=== PATIENT | female | born 1980 | race African-American/Black ===

== ENCOUNTER 2017-05-21 10:26 | Emergency (ER) | payer MEDICAID, OTHER, SELFPAY ==
[2017-05-21 10:58] LABS: #Basophils 0.1 thou/uL (0.0-0.2); #Eosinphils 1.3 thou/uL (0.0-0.7); #Lymphocytes 2.9 thou/uL (1.20-3.40); #Monocytes 0.9 thou/uL (0.11-0.59); #Neutrophils 7.2 thou/uL (1.40-6.50); %Basophils 1.1 % (0.0-1.0); %Eosinophils 10.3 % (0.0-10.0); %Lymphocytes 23.3 % (21.0-51.0); %Monocytes 6.9 % (0.0-10.0); %Neutrophils 58.3 % (42.0-75.0); Hemoglobin 8.6 g/dL (12.0-16.0); Mean Corpuscular HGB CONC 29.7 g/dL (32.0-36.0); Mean Corpuscular Hemoglobin 19.7 pg (27.0-31.0); Mean Corpuscular Volume 66.4 fl (81.0-99.0); Mean Platelet Volume 5.7 fL (7.4-10.4); Platelet Count 207 thou/uL (130-400); Red Blood Cell (RBC) Count 4.34 mill/uL (4.20-5.40); White Blood Cell (WBC) Count 12.4 thou/uL (4.8-10.8)
[2017-05-21 11:08] LABS: BHCG - Serum Negative (NEGATIVE); Pregs Control Background? CLEAR/WHITE (CLR/WHITE); Pregs Control Bar Appear? YES (CONTROL BAR)
[2017-05-21 11:16] LABS: ALT (SGPT) 11 U/L (8-55); AST (SGOT) 17 U/L (5-34); Albumin 3.9 g/dL (3.5-5.0); Alkaline Phosphatase 88 U/L (40-150); Anion Gap 11 mmol/L (10-20); BUN (Urea Nitrogen) 4 mg/dL (7.0-18.7); Bilirubin, Total 0.3 mg/dL (0.2-1.2); Calc. Creatinine Clearance 0 mL/min (70-130); Calcium 8.8 mg/dL (7.8-10.44); Carbon Dioxide 23 mmol/L (22-29); Chloride 105 mmol/L (98-107); Estimated GFR-MDRD Greater than 90; Globulin 3.3 g/dL (2.4-3.5); Glucose 90 mg/dL (70-105); Potassium 3.8 mmol/L (3.5-5.1); Protein, Total 7.2 g/dL (6.0-8.3); Sodium 135 mmol/L (136-145)
[2017-05-21 11:27] LABS: Anisocytosis MODERATE=16-30 cells (100X) (0-5/hpf); Hypochromia MODERATE=16-30 cells (100X) (0-5/hpf); MDiff Complete? YES; Microcytosis SLIGHT = 6-15 cells (100X) (0-5/hpf); Ovalocytes SLIGHT = 2-5 cells (100X) (0-1/hpf); PLT Morphology Comment Appears Adequate; Polychromasia SLIGHT = 2-3 cells (100X) (0-2/hpf); Reflex for Review?? NO; Target Cells SLIGHT = 2-5 cells (100X) (0-1/hpf)
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
[2017-05-21 12:10] LABS: Bilirubin Negative (Negative); Blood, Urine Negative (Negative); Clarity CLEAR (Clear); Glucose, Urine (Dipstick) Negative (Negative); Leukocyte Moderate (Negative); Nitrite Negative (Negative); Protein, Urine (Dipstick) Negative (Neg-Trace); Urobilinogen 0.2 mg/dL (0.2-1.0)
[2017-05-21 12:12] LABS: Bacteria/HPF Rare-Few HPF (None Seen); Hyaline Casts/LPF 0-3 HYALINE CAST LPF (0-3 Hyaline); RBC/HPF 0-3 HPF (0-3); Squamous Epithelial 0-3 HPF (0-3)
[2017-05-21 12:13] LABS: Specific Gravity, Urine 1.001 (1.002-1.036)
[2017-05-21] MEDS ORDERED: Naproxen 500 MG TAB ONE (13:07)
--- NOTE | 2017-05-29 18:03 | EKG ---
Test Reason : Blood Pressure : / mmHG Vent. Rate : 060 BPM Atrial Rate : 060 BPM P-R Int : 146 ms QRS Dur : 086 ms QT Int : 428 ms P-R-T Axes : 054 043 013 degrees QTc Int : 428 ms Normal sinus rhythm Minimal voltage criteria for LVH, may be normal variant Borderline ECG Confirmed by SIDNEY CARPIO, VANDANA ([id number]), social media editor THAI ROSAS ([id number]) on 05/29/2017 6:03:14 PM Referred By: Confirmed By:VANDANA LITTLE MD
== END 2017-05-21 13:00 | disposition home or self-care (01) ==
LOC: ERS 10:26
DX: M25.561 Pain in right knee (principal); J45.909 Unspecified asthma, uncomplicated; G43.909 Migraine, unspecified, not intractable, without status migrainosus; Z79.899 Other long term (current) drug therapy; Z87.891 Personal history of nicotine dependence; V89.2XXA Person injured in unspecified motor-vehicle accident, traffic, initial encounter
CPT/HCPCS: 71045; 72125; 72170; 80053; 81003; 81015; 84703; 85025; 93005

== ENCOUNTER 2017-12-25 05:16 | Emergency (ER) | payer SELFPAY ==
[2017-12-25] MEDS ORDERED: Ketorolac Tromethamine 30 MG/ML VIAL ONE (05:39)
== END 2017-12-25 05:55 | disposition home or self-care (01) ==
LOC: ERS 05:16
DX: M54.5 Low back pain (principal); Z87.891 Personal history of nicotine dependence
CPT/HCPCS: 96372; J1885

== ENCOUNTER 2018-07-23 12:41 | Emergency (ER) | payer SELFPAY ==
[~2018-07-23 12:41] MED LIST: ISOVUE-370 76%-LOCM 1 ML ONE
[2018-07-23] MEDS ORDERED: Morphine 4 MG/ML VIAL ONE (13:23)
[2018-07-23 13:51] LABS: #Basophils 0.1 thou/uL (0.0-0.2); #Lymphocytes 0.9 thou/uL (1.20-3.40); #Monocytes 0.6 thou/uL (0.11-0.59); #Neutrophils 7.6 thou/uL (1.40-6.50); %Basophils 0.7 % (0.0-1.0); %Eosinophils 0.2 % (0.0-10.0); %Monocytes 6.1 % (0.0-10.0); Hemoglobin 9.4 g/dL (12.0-16.0); Mean Corpuscular HGB CONC 30.6 g/dL (32.0-36.0); Mean Corpuscular Hemoglobin 22.3 pg (27.0-31.0); Mean Corpuscular Volume 72.9 fL (78.0-98.0); Mean Platelet Volume 10.3 fL (7.4-10.4); Platelet Count 197 thou/uL (130-400); RBC Distribution Width 20.1 % (11.5-14.5); Red Blood Cell (RBC) Count 4.21 mill/uL (4.20-5.40); White Blood Cell (WBC) Count 9.2 thou/uL (4.8-10.8)
[2018-07-23 14:03] LABS: ALT (SGPT) 14 U/L (8-55); AST (SGOT) 15 U/L (5-34); Albumin 3.4 g/dL (3.5-5.0); Alkaline Phosphatase 74 U/L (40-150); Anion Gap 13 mmol/L (10-20); BUN (Urea Nitrogen) 10 mg/dL (7.0-18.7); Bilirubin, Total 0.3 mg/dL (0.2-1.2); Calc. Creatinine Clearance 0 mL/min (70-130); Calcium 9.1 mg/dL (7.8-10.44); Carbon Dioxide 22 mmol/L (22-29); Chloride 108 mmol/L (98-107); Estimated GFR-MDRD Greater than 90; Globulin 2.3 g/dL (2.4-3.5); Glucose 114 mg/dL (70-105); Lipase 9 U/L (8-78); Potassium 3.4 mmol/L (3.5-5.1); Protein, Total 5.7 g/dL (6.0-8.3); Sodium 140 mmol/L (136-145)
[2018-07-23 14:14] LABS: Anisocytosis MODERATE=16-30 cells (100X) (0-5/hpf); Hypochromia SLIGHT = 6-15 cells (100X) (0-5/hpf); MDiff Complete? YES; Microcytosis SLIGHT = 6-15 cells (100X) (0-5/hpf); Ovalocytes SLIGHT = 2-5 cells (100X) (0-1/hpf); Platelet Morphology Comment Appears Adequate; Polychromasia SLIGHT = 2-3 cells (100X) (0-2/hpf); Target Cells SLIGHT = 2-5 cells (100X) (0-1/hpf)
[2018-07-23 15:11] LABS: Bilirubin Negative (Negative); Blood, Urine Negative (Negative); Clarity CLOUDY (Clear); Glucose, Urine (Dipstick) Negative (Negative); Leukocyte Trace (Negative); Nitrite Negative (Negative); Protein, Urine (Dipstick) 100 mg/dL (Neg-Trace); Specific Gravity, Urine 1.026 (1.002-1.036); pH, Urine 8.5 (5.0-9.0)
[2018-07-23 15:12] LABS: Bacteria/HPF Rare-Few HPF (None Seen); Hyaline Casts/LPF 0-3 HYALINE CAST LPF (0-3 Hyaline); Pathc Cast-AUWi Flag 0.27 (0-2.49); Pregnancy Test - Urine (BHCG) Negative (Negative); Pregu Control Background? CLEAR/WHITE (CLR/WHITE); Pregu Control Bar Appear? YES (CONTROL BAR); Specific Gravity 1.026 (1.002-1.036)
[2018-07-23 15:24] LABS: Transitional Epithelial 0-3 HPF (0-3)
--- NOTE | 2018-07-23 16:01 | CT ---
CT ABDOMEN AND PELVIS WITH IV CONTRAST 07/23/2018 CLINICAL INFORMATION: Nausea and vomiting. COMPARISON: 08/12/2014. Technique: Multiple contiguous axial CT images are obtained through the abdomen and pelvis with IV contrast. Cor onal reformatted images are provided. FINDINGS: Lower Chest: within normal limits. Vessels: Normal aorta is normal in caliber without evidence of an aortic dissection. Abdomen: Portal vein:Patent Gallbladder: No calcified gallstones. Normal caliber wall. Liver: within normal limits. Pancreas: within normal limits. Spleen: within normal limits. Adrenals: within normal limits. Kidneys: within normal limits. Peritoneum: Trace amount of free fluid is seen in the pelvis which may be physiologic in origin. Bowel: Normal caliber.The appendix is not able to be visualized on this exam. There is a curvilinear increased density focus seen at the cecal apex, and findings may be attributable to prior appendectomy. Clinical correlation recommended. There is a low-density collection seen left anterolat eral pelvis probably related to fluid within a loop of bowel. Mesentery and Retroperitoneum: No enlarged mesenteric or retroperitoneal lymph nodes. Abdominal Wall: within normal limits. Pelvis: Reproductive Organs: There are hypodense cystic structures seen within the expected location of each ovary measuring 2.3 cm on the left and 2.1 cm on the right likely due to small ovarian cysts. Pelvis within normal limits. Bladder: Decompressed but otherwise within normal limits. Bones: within normal limits. IMPRESSION: 1. No acute findings are seen in the abdomen or pelvis. 2. Hypodense cystic appearing structures anterolateral aspect of the pelvis bilaterally probably rela julian to ovarian cysts. 3. Nonvisualization of the appendix. There is a curvilinear focus of increased density seen at the ce surendra apex which may potentially be related to prior appendectomy. Clinical correlation is recommended. 4. Trace free fluid in the pelvis probably physiologic in origin.
== END 2018-07-23 16:51 | disposition home or self-care (01) ==
LOC: ERS 12:41
DX: R10.9 Unspecified abdominal pain (principal); R11.2 Nausea with vomiting, unspecified; G43.909 Migraine, unspecified, not intractable, without status migrainosus; F31.9 Bipolar disorder, unspecified; F43.10 Post-traumatic stress disorder, unspecified; Z87.891 Personal history of nicotine dependence
CPT/HCPCS: 36415; 74177; 80053; 81003; 81015; 81025; 83605; 83690; 85025; 96361; 96374; J2270; Q9966

== ENCOUNTER 2018-09-24 08:15 | Observation (INO) | payer SELFPAY ==
[2018-09-24] MEDS ORDERED: Ondansetron PF 4 MG/2 ML Vial ONE (08:29)
[2018-09-24 08:51] LABS: BHCG - Serum Negative (NEGATIVE); Pregs Control Background? CLEAR/WHITE (CLR/WHITE); Pregs Control Bar Appear? YES (CONTROL BAR)
[2018-09-24 08:54] LABS: #Basophils 0.1 thou/uL (0.0-0.2); #Lymphocytes 1.2 thou/uL (1.20-3.40); #Monocytes 0.4 thou/uL (0.11-0.59); #Neutrophils 6.5 thou/uL (1.40-6.50); %Basophils 0.7 % (0.0-1.0); %Eosinophils 0.1 % (0.0-10.0); %Lymphocytes 15.1 % (21.0-51.0); %Monocytes 4.7 % (0.0-10.0); %Neutrophils 79.5 % (42.0-75.0); Anisocytosis SLIGHT = 6-15 cells (100X) (0-5/hpf); Hemoglobin 10.1 g/dL (12.0-16.0); MDiff Complete? YES; Mean Corpuscular HGB CONC 31.2 g/dL (32.0-36.0); Mean Corpuscular Volume 73.8 fL (78.0-98.0); Mean Platelet Volume 11.2 fL (7.4-10.4); Platelet Count 192 thou/uL (130-400); RBC Distribution Width 21.2 % (11.5-14.5); Red Blood Cell (RBC) Count 4.38 mill/uL (4.20-5.40); White Blood Cell (WBC) Count 8.2 thou/uL (4.8-10.8)
[2018-09-24 09:04] LABS: ALT (SGPT) 22 U/L (8-55); AST (SGOT) 19 U/L (5-34); Albumin 4.2 g/dL (3.5-5.0); Alkaline Phosphatase 83 U/L (40-150); Anion Gap 13 mmol/L (10-20); BUN (Urea Nitrogen) 10 mg/dL (7.0-18.7); Bilirubin, Total 0.5 mg/dL (0.2-1.2); Calc. Creatinine Clearance 0 mL/min (70-130); Calcium 8.9 mg/dL (7.8-10.44); Carbon Dioxide 22 mmol/L (22-29); Chloride 104 mmol/L (98-107); Estimated GFR-MDRD Greater than 90; Glucose 117 mg/dL (70-105); Lipase 6 U/L (8-78); Potassium 3.8 mmol/L (3.5-5.1); Protein, Total 7.2 g/dL (6.0-8.3); Sodium 135 mmol/L (136-145)
[2018-09-24 10:24] LABS: Bilirubin Negative (Negative); Blood, Urine Moderate (Negative); Clarity CLOUDY (Clear); Glucose, Urine (Dipstick) Negative (Negative); Leukocyte Small (Negative); Nitrite Negative (Negative); Protein, Urine (Dipstick) 100 mg/dL (Neg-Trace); Specific Gravity, Urine 1.028 (1.002-1.036); pH, Urine 6.5 (5.0-9.0)
[2018-09-24 10:26] LABS: Bacteria/HPF 1+ HPF (None Seen); Hyaline Casts/LPF 7-10 HYALINE CAST LPF (0-3 Hyaline); Pathc Cast-AUWi Flag 0.27 (0-2.49); RBC/HPF 21-50 HPF (0-3); WBC/HPF 21-50 HPF (0-3)
[2018-09-24] MEDS ORDERED: cefTRIAXone\\ROCEPHIN 1 GM VIAL ONE (10:52)
[2018-09-24 11:14] LABS: Troponin I Less than 0.010 ng/mL (< 0.028)
[2018-09-24 12:46] LABS: Amphetamine Not Detected (NotDetected); Benzodiazepine Screen Detected (NotDetected); Cocaine Metabolite Screen Not Detected (NotDetected); Medtox Reader # READER 4; Methadone Not Detected (NotDetected); Methamphetamine Not Detected (NotDetected); Opiate Screen Not Detected (NotDetected); Phencyclidine (PCP) Not Detected (NotDetected); THC/Cannabinoid Screen Not Detected (NotDetected); Tricyclic Screen Not Detected (NotDetected)
[2018-09-24] MEDS ORDERED: Guaifenesin DM 100-10/5 ML UDCUP PO PRN (12:46)
[2018-09-24] MEDS ORDERED: Ondansetron PF 4 MG/2 ML Vial IVP PRN (12:46)
[2018-09-24] MEDS ORDERED: Bisacodyl 10 MG SUPP PR PRN (12:46)
[2018-09-24] MEDS ORDERED: Senokot S 8.6-50 MG TAB PO PRN (12:46)
[2018-09-24 12:47] LABS: Barbiturates Screen Not Detected (NotDetected); Medtox Control Line Valid? VALID (VALID); Oxycodone Screen Not Detected (NotDetected)
[2018-09-24] MEDS ORDERED: Regadenoson 0.4 MG/5 ML SYRINGE ONE (13:12)
[2018-09-24] MEDS: Acetaminophen 325 MG TAB PO PRN (16:15)
[2018-09-24] MEDS: Sodium Chloride 0.9% 1,000 ML IV SCH (16:15)
--- NOTE | 2018-09-24 16:25 | NM ---
NM Cardiac Stress W EF WF History: Chest pain Comparison: None. Findings: Stress and rest performed after the intravenous administration of 30.7 and 10.2 mCi technet ium 99 M sestamibi respectively. No evidence of scar or ischemia. Normal wall motion. Calculated ejection fraction is 66%. Impression: Normal nuclear medicine cardiac stress test and ejection fraction.
--- NOTE | 2018-09-24 16:58 | HP ---
REASON FOR ADMISSION: Bradycardia, intractable nausea and vomiting, likely UTI. HISTORY OF PRESENTING ILLNESS: The patient initially came to ER with complaints of severe nausea, vomiting, and abdominal pain from yesterday. She also had nearly 5 times watery diarrhea. The diarrhea completely resolved last night. She could not keep anything down as she was still feeling nauseous and abdominal pain due to retching. There are no complaints of fever as such or urinary frequency or urgency. On arrival in ER, she was given Bentyl, a L of normal saline, and Zofran. She also got 1 dose of 1 g ceftriaxone for UTI. The patient developed bradycardia with heart rates going down to 40s. She also developed retrosternal chest pain, which she attributes it to probable worse retching. No radiation of this pain. This was 2/10 to 3/10 in intensity. The patient had associated EKG changes seen per ER physician with T-inversion seen in the anterolateral leads. PAST MEDICAL AND SURGICAL HISTORY: 1. History of appendectomy. 2. History of asthma. 3. Chronic back pain. 4. Migraine headaches. 5. x3. 6. Ovarian cyst removed. 7. Bipolar disorder, not on any medication. 8. Depression. 9. PTSD. 10. Tubal ligation. CURRENT MEDICATIONS: None. The patient says [facility] gave her very high doses, which made her sleepy, and her children were worried that she is getting over-sedated with the medications for bipolar disorder. She has been off all medications from last 1 year now. ALLERGIES: NO KNOWN DRUG ALLERGIES. PERSONAL HISTORY: Quit smoking in 2014, prior to which has smoked 1-1/2-pack-a- day for nearly 20 years. Denies substance use or alcohol. The patient has 4 children ranging from 17 years, 15 years. 11 years, and 9-year-old. FAMILY HISTORY: Both parents are living and have history of hypertension. Maternal grandmother had left breast cancer and had surgery for the same. CODE STATUS: Full. REVIEW OF SYSTEMS: CONSTITUTIONAL: Negative for weight loss or gain, ability to conduct usual activities. SKIN: Negative for rash, itching. EYES: Negative for double vision, pain. ENT/MOUTH: Negative for nose bleeding, neck stiffness, pain, tenderness. CARDIOVASCULAR: Negative for palpitations, dyspnea on exertion, orthopnea. RESPIRATORY: Negative for shortness of breath, wheezing, cough, hemoptysis, fever or night sweats. GASTROINTESTINAL: Negative for poor appetite, abdominal pain, heartburn, nausea , vomiting, constipation, or diarrhea. GENITOURINARY: Negative for urgency, frequency, dysuria, nocturia. MUSCULOSKELETAL: Negative for pain, swelling. NEUROLOGIC/PSYCHIATRIC: Negative for anxiety, depression. ALLERGY/IMMUNOLOGIC: Negative for skin rash, bleeding tendency. PHYSICAL EXAMINATION: GENERAL: The patient is a 38-year-old female, who is currently in mild distress from nausea. VITAL SIGNS: Blood pressure 146/94, pulse 50 per minute, respiratory rate 20 per minute, temperature 98.3 degrees Fahrenheit, saturating 100% on room air. NECK: Supple. No elevated JVD. HEENT: Eyes; extraocular muscles intact. Pupils reacting to light. Oral cavity, mucous membranes are dry. No exudates or congestion. CARDIOVASCULAR: S1, S2 heard. Regular rhythm. RESPIRATORY: Air entry 2+ bilateral. Scattered rhonchi plus no rales or wheezes. ABDOMEN: Soft. Bowel sounds heard. No tenderness, rigidity, or guarding. EXTREMITIES: No peripheral edema or calf tenderness. VASCULAR SYSTEM: Peripheral pulses 1+ bilateral. No ischemic ulcerations or gangrene. CENTRAL NERVOUS SYSTEM: No gross focal deficits noted. The patient is alert and oriented well. PSYCHIATRIC SYSTEM: The patient's mood is euthymic. No hallucinations or delusions. LABORATORY AND DIAGNOSTIC DATA: White count of 8.2, H and H 10 and 32, platelet count 192 with 79% neutrophils, MCV is 73. Electrolytes stable. BUN 10, creatinine 0.8, serum glucose 117. Liver enzymes within normal limits. First set of troponin is negative. Serum test is negative. UA shows small leuk esterase, 21-50 WBCs, 1+ bacteria. Urine drug screen is positive for benzodiazepines. EKG done shows sinus bradycardia at 48 beats per minute. There is T-wave inversion seen in V1 to V4 with poor R-wave progression. CLINICAL IMPRESSION AND PLAN: The patient will be under observation on telemetry for bradycardia, likely due to increased cholinergic tone with intractable nausea and vomiting. The patient has had T-inversion seen with anteroseptal leads. In view of this history, we will follow ACS evidence-based protocol. We will have 2 more sets of troponin and a nuclear stress test in the morning. Currently, the patient is asymptomatic. We will also gently hydrate her with normal saline, with ciprofloxacin 500 mg twice daily for UTI. We will also place her on full-dose aspirin. Per prior records, the patient has been on Seroquel in the past and Zoloft. We will place her back on lower doses to see if she can tolerate them. Lipid profile will be obtained in the morning. Job ID: [id number] MTDD
[2018-09-24 17:21] LABS: Troponin I Less than 0.010 ng/mL (< 0.028)
[2018-09-24 19:41] LABS: Troponin I Less than 0.010 ng/mL (< 0.028)
[2018-09-24] MEDS: Ciprofloxacin 500 MG TAB PO SCH (21:00)
[2018-09-24] MEDS: Famotidine 20 MG TAB PO SCH (22:18)
[2018-09-25] MEDS: Sodium Chloride 0.9% 1,000 ML IV SCH (02:19)
[2018-09-25] MEDS: Ciprofloxacin 500 MG TAB PO SCH (05:58)
[2018-09-25 05:59] LABS: #Eosinphils 0.1 thou/uL (0.0-0.7); #Lymphocytes 3.3 thou/uL (1.20-3.40); #Monocytes 0.6 thou/uL (0.11-0.59); #Neutrophils 4.2 thou/uL (1.40-6.50); %Basophils 0.3 % (0.0-1.0); %Eosinophils 0.7 % (0.0-10.0); %Lymphocytes 40.3 % (21.0-51.0); %Monocytes 7.3 % (0.0-10.0); %Neutrophils 51.4 % (42.0-75.0); Hemoglobin 8.2 g/dL (12.0-16.0); Mean Corpuscular HGB CONC 31.7 g/dL (32.0-36.0); Mean Corpuscular Hemoglobin 23.6 pg (27.0-31.0); Mean Corpuscular Volume 74.4 fL (78.0-98.0); Mean Platelet Volume 10.9 fL (7.4-10.4); Platelet Count 168 thou/uL (130-400); RBC Distribution Width 21.5 % (11.5-14.5); Red Blood Cell (RBC) Count 3.48 mill/uL (4.20-5.40); White Blood Cell (WBC) Count 8.2 thou/uL (4.8-10.8)
[2018-09-25 06:25] LABS: Anion Gap 10 mmol/L (10-20); BUN (Urea Nitrogen) 6 mg/dL (7.0-18.7); Calc. Creatinine Clearance 87 mL/min (70-130); Calcium 8.2 mg/dL (7.8-10.44); Carbon Dioxide 22 mmol/L (22-29); Cardiac Risk 3.6 (Less than 4.5); Chloride 113 mmol/L (98-107); Cholesterol 93 mg/dl (< 200 Desired); Estimated GFR-MDRD Greater than 90; Glucose 87 mg/dL (70-105); HDL Cholesterol 26 mg/dL (>60 Neg Risk); LDL Cholesterol, Calculated 58 mg/dL; Potassium 3.6 mmol/L (3.5-5.1); Sodium 141 mmol/L (136-145); Triglycerides 47 mg/dL (Less than 150)
[2018-09-25] MEDS ORDERED: Ferrous Sulfate 325 MG TAB PO SCH (08:00)
[2018-09-25] MEDS ORDERED: Enoxaparin Sodium 40 MG/0.4 ML SYRINGE SC SCH (09:00)
[2018-09-25] MEDS ORDERED: Aspirin 325 mg Enteric Coated Tablet PO SCH (09:00)
[2018-09-25] MEDS: Famotidine 20 MG TAB PO SCH (09:32)
[2018-09-25] MEDS: Acetaminophen 325 MG TAB PO PRN (09:32)
[2018-09-25 12:12] VITALS: BP 99/56; TEMP 98
[2018-09-25 15:46] VITALS: BMI 18.3
--- NOTE | 2018-09-25 16:53 | DIS ---
DATE OF ADMISSION: 09/24/2018 DATE OF DISCHARGE: 09/25/2018 DISCHARGE DISPOSITION: Home. PRIMARY DISCHARGE DIAGNOSES: Intractable nausea and vomiting, bradycardia, and urinary tract infection. SECONDARY DISCHARGE DIAGNOSES: History of bipolar disorder, chronic migraines, and depression. PROCEDURES DONE DURING HOSPITALIZATION: Nuclear stress test done showed no evidence of scar or ischemia. Normal wall motion. Ejection fraction was 66%. UA showed small leuk esterase, 21 to 50 wbc's and 1+ bacteria. Urine drug screen was positive for benzodiazepines. LDL 58, total cholesterol 93, triglycerides 47, HDL 26. Serum test was negative. BUN 6 and creatinine 0.7. Troponin x3 negative. H and H 8.2 and 26, MCV 74, and platelet count 168. DISCHARGE MEDICATIONS: Ferrous sulfate 325 mg p.o. twice daily, ciprofloxacin 500 mg p.o. twice daily for another 4 days for urinary tract infection, omeprazole 20 mg daily, Seroquel 50 mg p.o. nightly, sertraline 50 mg p.o. every morning. ALLERGIES: NO KNOWN DRUG ALLERGIES. DISCHARGE PLAN: The patient to follow up with primary care physician in 1 week. BRIEF COURSE DURING HOSPITALIZATION: The patient initially came to ER with complaints of severe nausea, vomiting, and abdominal pain. She also had five episodes of diarrhea 24 hours prior to hospitalization, which got resolved on its own. On arrival in the ER, the patient was found to be bradycardic with heart rates dipping down to 40s. The patient also had T inversion seen in anterolateral leads on the EKG. In view of this, the patient was placed under observation. She has had three sets of troponin done, which was negative. Nuclear stress test done showed no reversible ischemia. The patient was placed on ciprofloxacin for her suspected UTI. Prior to discharge, she is tolerating oral solid food with no nausea. She has known history of bipolar disorder and has not been taking any medications for the last 1 year. She was apparently overmedicated per patient and was lethargic when she used to take them before. In view of this, the patient is placed on a lower dose of Seroquel at bedtime and Zoloft in the morning for depression. She needs follow up with [facility] in 2 weeks and primary care physician in 1 week. The patient has iron deficiency anemia with MCV of 74, and has been placed on ferrous sulfate 325 mg twice daily. She was counseled with regard to medication compliance. Her heart rate ranges from 40-70/min and she is asymptomatic, likely her baseline. Please note, I have seen and examined the patient on the day of discharge. Job ID: [id number] MAN
--- NOTE | 2018-09-26 11:37 | STRESS ---
Acquisition Time: 2018-09-24 15:10:55 Total Exercise Time: 00:01:00 Test Indications: CHEST PAIN Medications: Protocol: L[place]ISC[place] Max HR: 094 BPM 51% of Pred: 183 BPM Max BP: 120/070 mmHG Max Work Load: 1.0 METS RESTING ECG: SINUS BRADYCARDIA WITH NONSPECIFIC T-WAVE CHANGES SYMPTOMS: DYSPENA NORMAL BP RESPONSE ECTOPY: NONE ECG STRESS: NO SIGNIFICANT CHANGES INTERPRETATION: AWAIT NUCLEAR IMAGES FOR DEFINITIVE DIAGNOSIS Confirmed by SUNNY HARTMAN ([id number]), book editor PETRONA PAUL ([id number]) on 09/26/2018 11:36:27 AM Referred By: MD Natalia SAUER Confirmed By:SUNNY HARTMAN
== END 2018-09-25 15:55 | disposition home or self-care (01) ==
LOC: ERS 08:15 → 2SW 11:42
PROVIDERS: ADMIT Internal Medicine; ATTEND Internal Medicine
DX: R00.1 Bradycardia, unspecified (principal); N39.0 Urinary tract infection, site not specified; R11.2 Nausea with vomiting, unspecified; J45.909 Unspecified asthma, uncomplicated; G43.909 Migraine, unspecified, not intractable, without status migrainosus; F31.9 Bipolar disorder, unspecified; M54.9 Dorsalgia, unspecified; G89.29 Other chronic pain; F43.10 Post-traumatic stress disorder, unspecified; Z98.890 Other specified postprocedural states; Z90.89 Acquired absence of other organs; Z87.891 Personal history of nicotine dependence
CPT/HCPCS: 36415; 78452; 80048; 80053; 80061; 80306; 81003; 81015; 83690; 84484; 84703; 85025; 93005; 93017; 94760; 96361; 96365; 96372; 96375; 96376; A9500; G0378; J0500; J0696; J1650; J2405; J2785

== ENCOUNTER 2018-09-27 06:14 | Emergency (ER) | payer SELFPAY ==
[2018-09-27 06:50] LABS: #Basophils 0.1 thou/uL (0.0-0.2); #Eosinphils 0.1 thou/uL (0.0-0.7); #Lymphocytes 1.3 thou/uL (1.20-3.40); #Monocytes 0.4 thou/uL (0.11-0.59); #Neutrophils 7.7 thou/uL (1.40-6.50); %Basophils 0.6 % (0.0-1.0); %Eosinophils 0.6 % (0.0-10.0); %Lymphocytes 13.8 % (21.0-51.0); %Monocytes 4.3 % (0.0-10.0); %Neutrophils 80.7 % (42.0-75.0); Hemoglobin 8.1 g/dL (12.0-16.0); Mean Corpuscular Hemoglobin 22.9 pg (27.0-31.0); Mean Corpuscular Volume 73.8 fL (78.0-98.0); Mean Platelet Volume 9.8 fL (7.4-10.4); Platelet Count 194 thou/uL (130-400); RBC Distribution Width 21.4 % (11.5-14.5); Red Blood Cell (RBC) Count 3.55 mill/uL (4.20-5.40); White Blood Cell (WBC) Count 9.6 thou/uL (4.8-10.8)
[2018-09-27 07:07] LABS: ALT (SGPT) 21 U/L (8-55); AST (SGOT) 23 U/L (5-34); Albumin 3.3 g/dL (3.5-5.0); Alkaline Phosphatase 62 U/L (40-150); Anion Gap 8 mmol/L (10-20); BUN (Urea Nitrogen) 9 mg/dL (7.0-18.7); Bilirubin, Total 0.2 mg/dL (0.2-1.2); Calc. Creatinine Clearance 0 mL/min (70-130); Calcium 8.2 mg/dL (7.8-10.44); Carbon Dioxide 26 mmol/L (22-29); Chloride 109 mmol/L (98-107); Estimated GFR-MDRD Greater than 90; Globulin 2.2 g/dL (2.4-3.5); Glucose 95 mg/dL (70-105); Lipase 21 U/L (8-78); Potassium 3.2 mmol/L (3.5-5.1); Protein, Total 5.5 g/dL (6.0-8.3); Sodium 140 mmol/L (136-145)
[2018-09-27] MEDS ORDERED: Haloperidol Lactate 5 MG/ML VIAL ONE (07:15)
== END 2018-09-27 09:35 | disposition home or self-care (01) ==
LOC: ERS 06:14
DX: T40.7X1A Poisoning by cannabis (derivatives), accidental (unintentional), initial encounter (principal); R10.9 Unspecified abdominal pain; N39.0 Urinary tract infection, site not specified; F43.10 Post-traumatic stress disorder, unspecified; G43.909 Migraine, unspecified, not intractable, without status migrainosus; J45.909 Unspecified asthma, uncomplicated; F31.9 Bipolar disorder, unspecified
CPT/HCPCS: 36415; 80053; 83690; 85025; 96361; 96374; 96375; J1630

== ENCOUNTER 2020-05-08 11:21 | Emergency (ER) | payer SELFPAY ==
[2020-05-08] MEDS ORDERED: Ketorolac Tromethamine 30 MG/ML VIAL ONE (13:05)
== END 2020-05-08 13:46 | disposition home or self-care (01) ==
LOC: ERS 11:21
DX: K02.9 Dental caries, unspecified (principal); J45.909 Unspecified asthma, uncomplicated
CPT/HCPCS: 96372; 99282; J1885

== ENCOUNTER 2020-11-16 08:36 | Emergency (ER) | payer SELFPAY ==
[2020-11-16] MEDS ORDERED: Ondansetron ODT 4 MG TAB ONE (08:48)
[2020-11-16] MEDS ORDERED: Ondansetron PF 4 MG/2 ML Vial ONE (09:13)
[2020-11-16 10:00] LABS: #Basophils 0.1 thou/uL (0.0-0.2); #Eosinphils 0.1 thou/uL (0.0-0.7); #Lymphocytes 2.5 thou/uL (1.20-3.40); #Monocytes 0.6 thou/uL (0.11-0.59); #Neutrophils 8.6 thou/uL (1.40-6.50); %Basophils 0.6 % (0.0-1.0); %Eosinophils 0.6 % (0.0-10.0); %Lymphocytes 21.5 % (21.0-51.0); %Monocytes 4.8 % (0.0-10.0); %Neutrophils 72.5 % (42.0-75.0); Hemoglobin 12.1 g/dL (12.0-16.0); Mean Corpuscular HGB CONC 32.7 g/dL (32.0-36.0); Mean Corpuscular Hemoglobin 27.9 pg (27.0-31.0); Mean Corpuscular Volume 85.2 fL (78.0-98.0); Mean Platelet Volume 10.5 fL (7.4-10.4); Platelet Count 182 thou/uL (130-400); RBC Distribution Width 17.1 % (11.5-14.5); Red Blood Cell (RBC) Count 4.36 mill/uL (4.20-5.40); White Blood Cell (WBC) Count 11.8 thou/uL (4.8-10.8)
[2020-11-16 10:01] LABS: BHCG - Serum Negative (NEGATIVE); Pregs Control Background? CLEAR/WHITE (CLR/WHITE); Pregs Control Bar Appear? YES (CONTROL BAR)
[2020-11-16 10:15] LABS: ALT (SGPT) 16 U/L (8-55); AST (SGOT) 20 U/L (5-34); Alkaline Phosphatase 105 U/L (40-110); Anion Gap 9 mmol/L (10-20); BUN (Urea Nitrogen) 9 mg/dL (7.0-18.7); Bilirubin, Total 0.4 mg/dL (0.2-1.2); Calc. Creatinine Clearance 0 mL/min (70-130); Carbon Dioxide 27 mmol/L (22-29); Chloride 107 mmol/L (98-107); Globulin 3.7 g/dL (2.4-3.5); Glucose 91 mg/dL (70-105); Lipase 19 U/L (8-78); Potassium 3.2 mmol/L (3.5-5.1); Protein, Total 7.7 g/dL (6.0-8.3); Sodium 140 mmol/L (136-145)
[2020-11-16 10:22] LABS: Bacteria/HPF None Seen HPF (None Seen); Bilirubin Negative (Negative); Blood, Urine 2+ (Negative); Clarity Clear (Clear); Glucose, Urine (Dipstick) Normal (Negative); Ketone, Urine Negative (Negative); Leukocyte 250 Leu/uL (Negative); Nitrite Negative (Negative); Protein, Urine (Dipstick) 30 mg/dL (Neg-Trace); RBC/HPF 21-50 HPF (0-3); Specific Gravity, Urine 1.026 (1.002-1.036); Urobilinogen 3 mg/dL (Less than 2); WBC/HPF 21-50 HPF (0-3)
[2020-11-16] MEDS ORDERED: Potassium Chloride 20 MEQ TAB ONE (11:04)
== END 2020-11-16 11:14 | disposition home or self-care (01) ==
LOC: ERS 08:36
DX: U07.1 COVID-19 (principal); R11.2 Nausea with vomiting, unspecified; N39.0 Urinary tract infection, site not specified; R19.7 Diarrhea, unspecified; G43.909 Migraine, unspecified, not intractable, without status migrainosus; J45.909 Unspecified asthma, uncomplicated
CPT/HCPCS: 80053; 81003; 81015; 83690; 84703; 85025; 96372; 96374; J0500; J2405; Q0162

== ENCOUNTER 2025-03-06 12:00 | Inpatient (IN) | payer OTHER ==
[2025-03-15 11:45] LABS: #Basophils Less than 0.03 10x3/uL (0.0-0.2); #Eosinophils 0.06 10x3/uL (0.0-0.7); #Monocytes 0.53 10x3/uL (0.11-0.59); #Neutrophils 4.27 10x3/uL (1.40-6.50); %Basophils 0.1 % (0.0-1.0); %Eosinophils 0.9 % (0.0-10.0); %Lymphocytes 27.8 % (21.0-51.0); %Monocytes 7.8 % (0.0-10.0); %Neutrophils 63.1 % (42.0-75.0); Hematocrit 32.2 % (36.0-47.0); Hemoglobin 10.0 g/dL (12.0-16.0); Mean Corpuscular Hemoglobin 23.4 pg (27.0-31.0); Mean Corpuscular Volume 75.4 fL (78.0-98.0); Platelet Count 253 10x3/uL (130-400); Red Blood Cell (RBC) Count 4.27 mill/uL (4.20-5.40); White Blood Cell (WBC) Count 6.77 10x3/uL (4.8-10.8)
[2025-03-15 11:59] LABS: BHCG - Serum Negative (NEGATIVE); Pregs Control Background? CLEAR/WHITE (CLR/WHITE); Pregs Control Bar Appear? YES (CONTROL BAR)
[2025-03-15 12:00] LABS: INR-International Normal Ratio 1.2; PTT 30.9 sec (22.9-36.1); Prothrombin Time 15.2 sec (12.0-14.7)
[2025-03-15 12:05] LABS: Anion Gap 11 mmol/L (10-20); BUN (Urea Nitrogen) 6 mg/dL (7.0-18.7); Calc. Creatinine Clearance 0 mL/min (70-130); Calcium 9.1 mg/dL (7.8-10.44); Carbon Dioxide 25 mmol/L (22-29); Chloride 104 mmol/L (98-107); Glucose 73 mg/dL (70-105); Potassium 3.4 mmol/L (3.5-5.1); Sodium 137 mmol/L (136-145)
[2025-03-21] MEDS ORDERED: PROPOFOL 20 ML ONE (11:09)
[2025-03-21] MEDS ORDERED: HYDROmorphone 2 MG/ML VIAL ONE (11:09)
[2025-03-21] MEDS ORDERED: Rocuronium Bromide 10 MG/ML (10ML VIAL) ONE ×3 (11:09→13:50)
[2025-03-21] MEDS ORDERED: Thrombin 5000 UNITS/5 ML VIAL ONE (11:56)
[2025-03-21] MEDS ORDERED: CEFAZOLIN 2 GM VIAL ONE (11:56)
[2025-03-21] MEDS ORDERED: PROPOFOL 200 MG/20 ML VIAL ONE (12:53)
[2025-03-21] MEDS ORDERED: Ondansetron PF 4 MG/2 ML Vial ONE (13:51)
[2025-03-21] MEDS ORDERED: PHENYLEPHRINE-NS 100 MCG/ML 10 ML SYRINGE ONE (15:30)
[2025-03-21] MEDS ORDERED: CEFAZOLIN 1 GM VIAL ONE (18:26)
[2025-03-21] MEDS ORDERED: SUGAMMADEX SODIUM 200 MG/2 ML VIAL ONE ×2 (19:30→19:40)
[2025-03-21] MEDS ORDERED: Prochlorperazine 10 MG/2 ML VIAL IM PRN (19:42)
[2025-03-21] MEDS ORDERED: HYDROcodone/Acetaminophen 7.5/325 mg Tablet PO PRN (19:42)
[2025-03-21] MEDS ORDERED: Ondansetron PF 4 MG/2 ML Vial IVP PRN (19:42)
[2025-03-21] MEDS: Cyclobenzaprine 10 MG TAB PO PRN (21:07)
[2025-03-21] MEDS: HYDROcodone/Acetaminophen 7.5/325 mg Tablet PO PRN (21:08)
[2025-03-22 04:59] LABS: #Basophils Less than 0.03 10x3/uL (0.0-0.2); #Eosinophils Less than 0.03 10x3/uL (0.0-0.7); #Monocytes 0.67 10x3/uL (0.11-0.59); #Neutrophils 8.95 10x3/uL (1.40-6.50); %Basophils 0.1 % (0.0-1.0); %Eosinophils 0.0 % (0.0-10.0); %Lymphocytes 9.6 % (21.0-51.0); %Monocytes 6.3 % (0.0-10.0); %Neutrophils 83.8 % (42.0-75.0); Hematocrit 29.7 % (36.0-47.0); Hemoglobin 9.1 g/dL (12.0-16.0); Mean Corpuscular Hemoglobin 23.3 pg (27.0-31.0); Mean Corpuscular Volume 76.0 fL (78.0-98.0); Platelet Count 165 10x3/uL (130-400); Red Blood Cell (RBC) Count 3.91 mill/uL (4.20-5.40); White Blood Cell (WBC) Count 10.68 10x3/uL (4.8-10.8)
[2025-03-22 05:18] LABS: Anion Gap 10 mmol/L (10-20); BUN (Urea Nitrogen) 8 mg/dL (7.0-18.7); Calc. Creatinine Clearance 84 mL/min (70-130); Calcium 7.9 mg/dL (7.8-10.44); Carbon Dioxide 20 mmol/L (22-29); Chloride 110 mmol/L (98-107); Glucose 113 mg/dL (70-105); Potassium 3.7 mmol/L (3.5-5.1); Sodium 136 mmol/L (136-145)
[2025-03-23 00:45] VITALS: BMI 20.4
[2025-03-23 11:59] VITALS: BP 103/71; TEMP 98.6
== END 2025-03-23 15:22 | disposition home or self-care (01) | DRG 519 ==
LOC: SURG A 03-21 08:59 → SURG B 03-21 20:50
PROVIDERS: ADMIT Orthopaedic Surgery; ATTEND Orthopaedic Surgery
PROC: 00NW0ZZ Release Cervical Spinal Cord, Open Approach (ICD-10-PCS; principal; 2025-03-21)
PROC: 0PH304Z Insertion of Internal Fixation Device into Cervical Vertebra, Open Approach (ICD-10-PCS; 2025-03-21)
PROC: 3E03329 Introduction of Other Anti-infective into Peripheral Vein, Percutaneous Approach (ICD-10-PCS; 2025-03-21)
DX: M48.02 Spinal stenosis, cervical region (principal); G95.89 Other specified diseases of spinal cord; M47.12 Other spondylosis with myelopathy, cervical region; Z91.041 Radiographic dye allergy status; Z91.0120 Allergy to eggs, unspecified; Z88.8 Allergy status to other drugs, medicaments and biological substances; Z90.49 Acquired absence of other specified parts of digestive tract; Z98.890 Other specified postprocedural states
CPT/HCPCS: 36415; 72040; 80048; 84703; 85025; 85610; 85730; 86850; 86900; 86901; C1713; C1889; J0169; J0665; J0690; J1100; J1171; J2405; J2704; J3010; J3373; J7030

== ENCOUNTER 2025-03-15 10:21 | Outpatient (CLI) | payer OTHER | END 2025-03-15 10:22 | disposition home or self-care (01) | LOC: LABBT 10:21 | PROVIDERS: ATTEND Orthopaedic Surgery | DX: Z01.818 Encounter for other preprocedural examination (principal); M48.02 Spinal stenosis, cervical region; M47.12 Other spondylosis with myelopathy, cervical region | CPT/HCPCS: 71046; 93005; 93010 ==